=== PATIENT | female | born 1990 | race Caucasian/White ===

== ENCOUNTER 2016-07-27 13:37 | Emergency (ER) | payer OTHER ==
[2016-07-27] MEDS ORDERED: ACETAMINOPHEN 325 MG TABLET PO ONE (14:04)
--- NOTE | 2016-07-27 14:04 | ER Document Report ---
ED Medical Screen (RME) - General Stated Complaint: DIZZINESS Notes: Patient is 7-8 weeks . She has had an US conforming IUP LMP: May 30 Vomiting for about 10 days and she states that she has been dizzy for about one week but worse today. Denies bleeding, pelvic pain, pyuria. admits to headache I have greeted and performed a rapid initial assessment of this patient. A comprehensive ED assessment and evaluation of the patient, analysis of test results and completion of the medical decision making process will be conducted by additional ED providers. TRAVEL OUTSIDE OF THE [place] IN LAST 30 DAYS: No - Related Data Allergies/Adverse Reactions: apple [Apple] Allergy (Verified 07/27/16 14:02) Raspberry Flavor, Artificial * [Raspberry Flavor, Artificial] Allergy (Verified 07/27/16 14:02) Sulfa (Sulfonamide Antibiotics) Allergy (Verified 07/27/16 14:02) Past Medical History Psychiatric Medical History: Denies: Hx Depression Past Surgical History: Reports: Hx Dilation and Curettage, Hx Gynecologic Surgery - D&C, Hx Tonsillectomy - Immunizations Hx Diphtheria, Pertussis, Tetanus Vaccination: Yes
[2016-07-27 14:42] LABS: ABSOLUTE EOSINOPHILS # (AUTO) 0.1 10^3/uL (0.0-0.6); ABSOLUTE LYMPHOCYTES (AUTO) 1.8 10^3/uL (0.5-4.7); ABSOLUTE MONOCYTES (AUTO) 0.4 10^3/uL (0.1-1.4); ABSOLUTE NEUT (AUTO) 5.6 10^3/uL (1.7-8.2); BASOPHILS % (AUTO) 0.3 % (0-2); EOSINOPHILS % (AUTO) 0.8 % (0-6); HEMATOCRIT 41.4 % (36.0-47.0); HEMOGLOBIN 14.6 g/dL (12.0-15.5); HGB HCT DIFFERENCE 2.4; LYMPHOCYTES % (AUTO) 22.3 % (13-45); MEAN CORPUSCULAR HEMOGLOBIN 31.5 pg (27.0-33.4); MEAN CORPUSCULAR HGB CONC 35.1 g/dL (32.0-36.0); MEAN CORPUSCULAR VOLUME 90 fl (80-97); MONOCYTES % (AUTO) 5.6 % (3-13); RED BLOOD COUNT 4.62 10^6/uL (3.72-5.28); RED CELL DISTRIBUTION WIDTH 12.2 % (11.5-14.0); WHITE BLOOD COUNT 7.9 10^3/uL (4.0-10.5)
[2016-07-27 14:57] LABS: AMORPHOUS SEDIMENT,URINE TRACE /HPF; APPEARANCE,URINE CLOUDY; BILIRUBIN,URINE NEGATIVE (NEGATIVE); GLUCOSE, URINE NEGATIVE (NEGATIVE); KETONES,URINE 20 mg/dL (NEGATIVE); LEUKOCYTE ESTERASE,URINE TRACE (NEGATIVE); NITRITE,URINE NEGATIVE (NEGATIVE); PROTEIN,URINE 30 mg/dL (NEGATIVE); URINE SPECIFIC GRAVITY 1.024; UROBILINOGEN,URINE NEGATIVE mg/dL (<2.0)
[2016-07-27 15:09] LABS: ALANINE AMINOTRANSFERASE 26 U/L (9-52); ALBUMIN 4.3 g/dL (3.5-5.0); ALKALINE PHOSPHATASE 42 U/L (38-126); ANION GAP 14 (5-19); ASPARTATE AMINO TRANSFERASE 14 U/L (14-36); BILIRUBIN,TOTAL 0.8 mg/dL (0.2-1.3); BLOOD UREA NITROGEN 9 mg/dL (7-20); CALCIUM 9.5 mg/dL (8.4-10.2); CARBON DIOXIDE 23 mmol/L (22-30); CHLORIDE 102 mmol/L (98-107); CREATININE RESULT 0.68 mg/dL (0.52-1.25); GLUCOSE 83 mg/dL (75-110); LIPASE 77.9 U/L (23-300); POTASSIUM 3.7 mmol/L (3.6-5.0); SODIUM 138.6 mmol/L (137-145); TOTAL PROTEIN 7.1 g/dL (6.3-8.2)
[2016-07-27] MEDS ORDERED: PROMETHAZINE HCL 25 MG TABLET PO ONE (15:47)
--- NOTE | 2016-07-27 15:47 | ER Document Report ---
ED General - General Chief Complaint: Dizziness Stated Complaint: DIZZINESS Mode of Arrival: Ambulatory Information source: Patient Notes: Patient presents to the emergency department with complaints of feeling very dizzy. She reports that she is approximately 6 weeks 4 days . . She reports for the past week and half she's been vomiting on a daily basis. For the past 2 days she's felt very dizzy with blurred vision when she stands up. Patient reports [facility]. They did ultrasound noted the baby was approximately 6 weeks 4 days. They also noted she had a UTI and called her today to discuss the UTI and order her keflex. Patient reports that when they called her she told him that about the dizziness they told to go to the emergency department. Denies fever and diarrhea. She reports that she is fine laying in the bed but the minute she sits or stands up she gets very dizzy and has blurred vision. She reports she has been able to eat anything. TRAVEL OUTSIDE OF THE [place] IN LAST 30 DAYS: No - HPI Onset: Last week Onset/Duration: Persistent Pain Level: 2 - headache Associated symptoms: Nausea, Vomiting Exacerbated by: Sitting, Standing Relieved by: Denies Similar symptoms previously: Yes Recently seen / treated by doctor: Yes - Related Data Allergies/Adverse Reactions: apple [Apple] Allergy (Verified 07/27/16 14:02) Raspberry Flavor, Artificial * [Raspberry Flavor, Artificial] Allergy (Verified 07/27/16 14:02) Sulfa (Sulfonamide Antibiotics) Allergy (Verified 07/27/16 14:02) Past Medical History - General Information source: Patient Last Menstrual Period: 05/30/16 - Social History Smoking Status: Never Smoker Chew tobacco use (# tins/day): No Frequency of alcohol use: None Drug Abuse: None Lives with: Family Family History: Reviewed & Not Pertinent Patient has suicidal ideation: No Patient has homicidal ideation: No - Medical History Medical History: Negative Renal/ Medical History: Denies: Hx Peritoneal Dialysis Psychiatric Medical History: Denies: Hx Depression Past Surgical History: Reports: Hx Dilation and Curettage, Hx Gynecologic Surgery - D&C, Hx Tonsillectomy - Immunizations Hx Diphtheria, Pertussis, Tetanus Vaccination: Yes Review of Systems - Review of Systems Notes: Review HPI for review of systems., All other systems negative Physical Exam - Vital signs Vitals: Pulse BP 63 103/49 L 07/27/16 16:05 07/27/16 16:05 - Notes Notes: PHYSICAL EXAMINATION: GENERAL: Well-appearing and in no acute distress nontoxic looking HEAD: Atraumatic, normocephalic. EYES: Pupils equal round extraocular movements intact, sclera anicteric, conjunctiva are normal. ENT: nares patent, oropharynx clear without exudates. Moist mucous membranes. NECK: Normal range of motion, supple without lymphadenopathy LUNGS: CTAB and equal. No wheezes rales or rhonchi. HEART: Regular rate and rhythm without murmurs ABDOMEN: Soft, no tenderness. No guarding, no rebound EXTREMITIES: Normal range of motion, no pitting edema. No cyanosis. NEUROLOGICAL: Cranial nerves grossly intact. Normal sensory/motor PSYCH: Normal mood, normal affect. SKIN: Warm, Dry, normal turgor, no rashes or lesions noted Course - Re-evaluation Re-evalutation: 07/27/16 15:51 She has not taken Phenergan today. She reports she doesn't like to take it because it knocks her out. Patient will be given Phenergan here to help with the nausea and will attempt po Challenge. 07/27/16 18:32 Patient taking by mouth fluids. No further vomiting. IV fluids completed. Patient instructed on the importance of monitoring her symptoms take 1/2 tab Phenergan as prescribed. She was also instructed to follow up with her primary care provider. nontoxic looking - Vital Signs Vital signs: Temp Pulse Resp BP Pulse Ox 98.3 F 85 20 109/82 100 07/27/16 18:40 07/27/16 18:40 07/27/16 18:40 07/27/16 18:40 07/27/16 18:40 - Laboratory Result Diagrams: 07/27/16 14:18 07/27/16 14:18 Laboratory results interpreted by me: 07/27/16 07/27/16 14:18 14:18 Beta HCG, Quant 59191.00 H Urine Protein 30 H Urine Ketones 20 H Ur Leukocyte Esterase TRACE H Discharge - Discharge Clinical Impression: Dizziness Condition: Stable Disposition: HOME, SELF-CARE Instructions: Cephalexin ([facility]), Dizziness ([facility]), Urinary Tract Infection ([facility]) , Intravenous (IV) Fluids ([facility]), Antinausea Medication ([facility]) Additional Instructions: *You have been evaluated for dizziness, UTI, vomiting *Take your medication as prescribed by your ELECTROLYSIS INVESTIGATOR for the UTI and nausea *Push fluids *Follow up with your STUDENT OUTREACH COORDINATOR within one week *Plan urine recheck in one week *Return to ED for worsening condition, changes, needs
[2016-07-27] MEDS ORDERED: RINGERS SOLUTION,LACTATED 1,000 ML IV ONE (16:19)
[2016-07-27 18:43] VITALS: BP 109/82
--- NOTE | 2016-07-27 20:02 | EKG REPORT ---
SEVERITY:- OTHERWISE NORMAL ECG - SINUS RHYTHM BORDERLINE RIGHT AXIS DEVIATION : Confirmed by: Rehan White 27-Jul-2016 20:01:13
== END 2016-07-27 18:39 | disposition home or self-care (01) ==
LOC: ER 13:37
DX: O26.891 Other specified pregnancy related conditions, first trimester (principal); R42 Dizziness and giddiness; H53.8 Other visual disturbances; R51 Headache; O23.41 Unspecified infection of urinary tract in pregnancy, first trimester; O21.9 Vomiting of pregnancy, unspecified; Z3A.08 8 weeks gestation of pregnancy; Z91.013 Allergy to seafood; Z88.2 Allergy status to sulfonamides
CPT/HCPCS: 36415; 80053; 81001; 83690; 84702; 85025; 93005; 93010; 99284